=== PATIENT | female | born 1990 | race Caucasian/White ===

== ENCOUNTER → 2017-03-25 | Outpatient (CLI) | payer OTHER ==
[2016-07-12 20:29] VITALS: BP 124/84
[~2017-03-25] MED LIST: NAPR500T3 PO; TOBR5DRO2 OU
--- NOTE | 2017-03-25 16:00 | RAD ---
Examination: Right breast mammogram with 3-D [place] and 2-D images. Targeted ultrasound the right breast History: History of right breast lump Comparison: None available Findings: The right breast mammogram demonstrates extremely dense breast tissue which can obscure small masses, category D. There is no obvious mass or lesion visualized in the right breast. Targeted ultrasound the right breast demonstrates no definite evidence of mass or lesion. Impression: Benign findings BI-RADS Category 2. Recommend clinical follow-up for breast lump.
== END | disposition home or self-care (01) ==
LOC: MAMMO 11:08
PROVIDERS: ATTEND Family Medicine
DX: N63 Unspecified lump in breast (principal)
CPT/HCPCS: 76641; G0206; G0279; 77061; 77065